=== PATIENT | female | born 1985 | race African-American/Black ===

== ENCOUNTER 2016-04-22 23:53 | Emergency (ER) | payer SELFPAY ==
[2016-04-23] MEDS ORDERED: Ibuprofen 800 MG TAB ONE (00:34)
--- NOTE | 2016-04-23 01:27 | ERRECORD ---
[facility] EMERGENCY RECORD HPI FOOT (00:12 BPIC) CHIEF COMPLAINT: Patient presents for evaluation of pain, to the right foot. HISTORIAN: History provided by patient, rt great toe pain and swelling that started after the end of her shift when she was standing throughout the day. pain worse with movement or palpation. sharp pain, no radiation. ROS (00:13 BPIC) CONSTITUTIONAL: Negative constitutional review of systems. EYES: Negative eye review of systems. ENT: Negative ears, nose, throat review of systems. CARDIOVASCULAR: Negative cardiovascular review of systems. RESPIRATORY: Negative respiratory review of systems. GI: Negative gastrointestinal review of systems. MUSCULOSKELETAL: see hpi. SKIN: Negative skin review of systems. PSYCHIATRIC: Negative psychiatric review of systems. PAST MEDICAL HISTORY MEDICAL HISTORY: Past medical history includes history of obesity, 325lbs, No past medical history. Notes: POSSIBLE TOXEMIA WITH LAST - EMERGENT C SECTION BECAUSE OF HER BP, No past medical history of cardiac disease, No past medical history of diabetes. VERIFIED 2-17. (00:14 MCRS) FEMALE SURGICAL HISTORY: Surgical history of section. Surgical history of section, Notes: X 1. VERIFIED 2-17. (00:14 MCRS) PSYCHIATRIC HISTORY: Notes: DENIES. No previous psychiatric history. VERIFIED 2-04-07. (00:14 MCRS) SOCIAL HISTORY: Patient denies alcohol use, Patient denies drug use, Patient has no smoking history, Social History includes VERIFIED TODAY'S VISIT, Patient has no smoking history, Patient denies alcohol use, Patient denies drug use. Patient has no smoking history, Patient denies alcohol use, Patient denies drug use. Social History includes WORKS AT [place], Social History includes VERIFIED TODAY'S VISIT, Patient has no smoking history, Patient denies alcohol use, Patient denies drug use. Patient has no smoking history, Patient denies alcohol use, Patient denies drug use. (00:14 MCRS) FAMILY HISTORY: No family history of coronary artery disease, Family history includes cerebral vascular accident, Family history includes diabetes, Family history includes hypertension. VERIFIED 2-17. (00:14 MCRS) NOTES: I have reviewed and agree with the PMH/PSxH/FamHx/SocHx obtained by the nurse. (00:13 BPIC) KNOWN ALLERGIES Penicillins CURRENT MEDICATIONS (00:05 MCRS) None &a-1R&a+25V*p+0X*j1513S*c202B*c15G*c2P*p-0X&a-25V&a+1R Name: Alyce Foote : 1985 F30 MedRec: [id number] AcctNum: [id number] Prepared: Asmira Apr 23, 2016 02:43 by Interface Page 1 of 3 pMD [facility] EMERGENCY RECORD VITAL SIGNS VITAL SIGNS: BP: 149/92 (Sitting), Pulse: 118, Resp: 20, Temp: 99.4 (Tympanic), Pain: 10 (Pressure), O2 sat: 96 on Room Air, Time: 04/23/2016 00:02. (00:02 MCRS) Temp: 99.4, Pain: 10, O2 sat: 96 on RA, Time: 04/23/2016 00:50. (00:50 MCRS) PHYSICAL EXAM (00:13 BPIC) CONSTITUTIONAL: Vital signs reviewed, Patient afebrile, Pulse normal, Blood pressure normal, Respiratory rate normal, Patient appears non toxic, Patient appears pain free, Patient alert and oriented to person, place and time. HEAD: Head exam included findings of head atraumatic, normocephalic. EYES: Eye exam included findings of eyelids normal to inspection, Extraocular muscles intact, Conjunctiva normal. ENT: Ear exam normal, Nose exam normal. NECK: Neck exam included findings of normal range of motion, Trachea midline. RESPIRATORY CHEST: Respiratory exam included findings of no respiratory distress, Chest exam included findings of chest movement symmetrical, Chest expansion equal. CARDIOVASCULAR: Cardiovascular exam included findings of heart rate regular rate and rhythm. LOWER EXTREMITY: right great toe tenderness to palpation. no appreciable swelling noted. NEURO: Neuro exam findings include patient oriented to person, place and time, Speech normal. PSYCHIATRIC: Psychiatric exam included findings of patient oriented to person place and time, Normal affect. RADIOLOGYINTERPRETATION (00:40 BPIC) LOWER EXTREMITIES: Toe films negative, on the right, no fracture, no dislocation. MEDICATION ADMINISTRATION SUMMARY Drug Name: ibuprofen, Dose Ordered: 800 mg, Route: Oral, Status: Given, Time: 00:36 04/23/2016, Detailed record available in Medication Service section. DOCTOR NOTES (00:40 BPIC) TEXT: I discussed the diagnosis with the patient prior to discharge. All questions were answered. There is no indication for admission currently and the patient will follow up with a primary care physician. Any pertinent labs or imaging were reviewed and dicussed with the patient. If any new or emergent symptoms occur, the patient will return to the emergency department. &a-1R&a+25V*p+0X*s7185U*c202B*c15G*c2P*p-0X&a-25V&a+1R Name: Alyce Foote : 1985 10 MedRec: [id number] AcctNum: [id number] Prepared: WedApr 23, 2016 02:43 by Interface Page 2 of 3 pMD [facility] EMERGENCY RECORD PROBLEM LIST No recorded problems DIAGNOSIS (00:41 BPIC) FINAL: PRIMARY: right great toe pain. PRESCRIPTION (00:41 BPIC) ibuprofen: TABLET : 800 mg : ORAL : Quantity: 800 Unit: mg Route: ORAL Schedule: every 8 hours PRN Dispense: 60 Unit: tab(s) May substitute. Refills: No Refills . NOTES: No Refills. DISPOSITION PATIENT: Disposition Type: Discharge, Disposition: *Discharge Home, Condition: Good. (00:40 BPIC) Disposition Transport: Car. (00:59 MCRS) Patient left the department. (00:59 MCRS) Sharma: BPIC=MD Melody, George MCRS=BRAEDEN Reynolds, Naseem &a-1R&a+25V*p+0X*[id number]*c202B*c15G*c2P*p-0X&a-25V&a+1R Name: Alyce Foote : 1985 F30 MedRec: [id number] AcctNum: [id number] Prepared: WedApr 23, 2016 02:43 by Interface Page 3 of 3 pMD MTDD
--- NOTE | 2016-04-23 01:29 | PICIS ---
[facility] EMERGENCY RECORD TRIAGE (WedApr 23, 2016 00:05 MCRS) TRIAGE NOTES: COMPLAINT OF RIGHT FOOT SWELLING SINCE 1300 TOADY... HAS BEEN STANDING MOST OF THE DAY - GREAT TOE HAS GREATEST SWELLING. (WedApr 23, 2016 00:05 MCRS) PATIENT: NAME: Alyce Foote, AGE: 30, GENDER: female, : Wed1985, TIME OF GREET: WedApr 22, 2016 23:54, PREFERRED LANGUAGE: [place], ETHNICITY: Not or , ECODE BILLING MAP: [facility], SSN: [id number], Zip Code: [address], KG WEIGHT: [phone], PHONE: , , , PERSON ID: [id number], PCP: MD Breewr Olayemi. (WedApr 23, 2016 00:05 MCRS) COMPLAINT: RIGHT FOOT SWOLLEN. (WedApr 23, 2016 00:05 MCRS) ADMISSION: URGENCY: 4 Non Urgent, ADMISSION SOURCE: Home, TRANSPORT: CAR, BED: ED -03. (WedApr 23, 2016 00:05 MCRS) ASSESSMENT: Assessment: COMPLAINT OF RIGHT GREAT TOES SWELLING AND PAIN SINCE 1300 TODAY.., Symptoms began 1300 TODAY. (00:14 MCRS) PAIN: Patient complains of pain described as, nagging, throbbing, Location RIGHT GREAT TOE, Pain is constant, Aggravating factors:, Aggravating factors include WALKING, No relieving factors. (00:14 MCRS) IMMUNIZATIONS: Flu vaccine up to date, Tetanus immunization up to date, Pneumococcal vaccine not up to date. (00:14 MCRS) SIRS SCORING: Heart Rate 110-139 (2), Temp range 96.8-101.1 (0), respiratory rate 12-24 (0), Mental Status altered: no (0). (00:14 MCRS) PROVIDERS: TRIAGE NURSE: Naseem Reynolds RN. (WedApr 23, 2016 00:05 MCRS) VITAL SIGNS: BP 149/92, (Sitting), Pulse 118, Resp 20, Temp 99.4, (Tympanic), Pain 10, (Pressure), O2 Sat 96, on Room Air, Time 04/23/2016 00:02. (00:02 MCRS) PREVIOUS VISIT ALLERGIES: Penicillins. (WedApr 23, 2016 00:05 MCRS) Penicillins. (00:14 MCRS) KNOWN ALLERGIES Penicillins CURRENT MEDICATIONS (00:05 MCRS) None VITAL SIGNS VITAL SIGNS: BP: 149/92 (Sitting), Pulse: 118, Resp: 20, Temp: 99.4 (Tympanic), Pain: 10 (Pressure), O2 sat: 96 on Room Air, Time: 04/23/2016 00:02. (00:02 MCRS) Temp: 99.4, Pain: 10, O2 sat: 96 on RA, Time: 04/23/2016 00:50. (00:50 MCRS) NURSING ASSESSMENT: EXTREMITY LOWER (00:14 MCRS) CONSTITUTIONAL: Patient arrives ambulatory, Gait steady, History &a-1R&a+25V*p+0X*r6989Y*c202B*c15G*c2P*p-0X&a-25V&a+1R Name: Alyce Foote : 1985 F30 MedRec: [id number] AcctNum: [id number] Prepared: WedApr 23, 2016 02:43 by Interface Page 1 of 5 pMD [facility] EMERGENCY RECORD obtained from patient, Patient appears, obese, uncomfortable, Patient cooperative, Patient alert, Oriented to person, place and time, Skin warm, Skin dry, Skin normal in color, Mucous membranes pink, Mucous membranes moist, Patient is well-groomed, Patient complains of PAINA ND SWELLING RIGHT GREAT TOE. PAIN: throbbing pain, to the first toe on the right foot, Onset of pain 1300 TODAY, constant, on a scale 0-10 patient rates pain as 10, Pain exacerbated by, WALKING-STANDING. NONVERBAL PAIN: Non Verbal pain assessment findings include: Non-verbal expressions of pain at rest (1), Facial grimaces present with movement (1), Result: 1. RIGHT LOWER EXTREMITY: Right lower extremity assessment findings include capillary refill less than 2 seconds, Skin color normal, Skin temperature warm, Distal sensation intact, Muscle tone normal, muscle strength 5, dorsalis pedis pulse is +3, Inspection findings include swelling, to RIGHT GREAT TOE, Notes: RIGHT GREAT TOE SWLOOEN AND PINKISH RED COLOR. SAFETY: Side rails up, Cart/Stretcher in lowest position, Family at bedside, Call light within reach, Hospital ID band on. NURSING PROCEDURE: BEDSIDE RADIOLOGY (00:22 MCRS) PATIENT IDENTIFIER: Patient actively involved in identification process, Patient's identity verified by hospital ID bracelet. BEDSIDE RADIOLOGY: Bedside radiology performed by FINANCIAL ANALYST ACCOUNTANT, Portable x-ray performed, of the right foot. SAFETY: Side rails up, Cart/Stretcher in lowest position, Family at bedside, Call light within reach, Hospital ID band on. NURSING PROCEDURE: DISCHARGE NOTE (00:50 MCRS) DISCHARGE: Patient discharged to home, ambulating without assistance, family driving, accompanied by //partner, Summary of Care printed/ provided, Patient requested and was provided an electronic copy of Discharge Instructions, Transition record given to patient, Discharge instructions given to patient, Simple or moderate discharge teaching performed, DISCHARGE INSTRUCTIONS, Prescriptions given and instructions on side effects given, Name of prescription(s) given: SEE LIST, Medication reconciliation form given, and reviewed with SEE LIST, Above person(s) verbalized understanding of discharge instructions and follow-up care, Patient treated and evaluated by physician. BELONGINGS: Valuables remain with patient. VITAL SIGNS: Temp: 99.4, Pain: 10, O2 sat: 96, on: RA. ORDER DETAILS Order Name: XR Toe(s) Rt Min 2 View, Status: Active, Time: 00:12 04/23/2016, User: [facility], - Ordered for: MD Oliver Bryan, - Entered by: MD Oliver Bryan - [facility] Apr 23, 2016 00:12, &a-1R&a+25V*p+0X*x5766A*c202B*c15G*c2P*p-0X&a-25V&a+1R Name: Alyce Foote : 1985 F30 MedRec: [id number] AcctNum: [id number] Prepared: [facility] Apr 23, 2016 02:43 by Interface Page 2 of 5 pMD [facility] EMERGENCY RECORD - Quantity: 1. MEDICATION ADMINISTRATION SUMMARY Drug Name: ibuprofen, Dose Ordered: 800 mg, Route: Oral, Status: Given, Time: 00:36 04/23/2016, Detailed record available in Medication Service section. MEDICATION SERVICE ibuprofen: Order: ibuprofen - Dose: 800 mg : Oral Ordered by: George Oliver MD Entered by: George Oliver MD [facility] Apr 23, 2016 00:33 , Acknowledged by: Naseem Reynolds RN [facility] Apr 23, 2016 00:33 Documented as given by: Naseem Reynolds RN [facility] Apr 23, 2016 00:36 Patient, Medication, Dose, Route and Time verified prior to administration. Amount given: 800MG, Site: Medication administered P.O., Patient appears Awake and alert- acceptable, Correct patient, time, route, dose and medication confirmed prior to administration, Patient advised of actions and side-effects prior to administration, Allergies confirmed and medications reviewed prior to administration, Patient in position of comfort, Side rails up, Cart in lowest position, Family at bedside. : Follow Up : Response assessment performed, No signs or symptoms of allergic reaction noted, No change in pain, No change in symptoms. (00:50 MCRS) HPI FOOT (00:12 BPIC) CHIEF COMPLAINT: Patient presents for evaluation of pain, to the right foot. HISTORIAN: History provided by patient, rt great toe pain and swelling that started after the end of her shift when she was standing throughout the day. pain worse with movement or palpation. sharp pain, no radiation. ROS (00:13 BPIC) CONSTITUTIONAL: Negative constitutional review of systems. EYES: Negative eye review of systems. ENT: Negative ears, nose, throat review of systems. CARDIOVASCULAR: Negative cardiovascular review of systems. RESPIRATORY: Negative respiratory review of systems. GI: Negative gastrointestinal review of systems. MUSCULOSKELETAL: see hpi. SKIN: Negative skin review of systems. PSYCHIATRIC: Negative psychiatric review of systems. PAST MEDICAL HISTORY MEDICAL HISTORY: Past medical history includes history of obesity, 325lbs, No past medical history. Notes: POSSIBLE TOXEMIA WITH LAST - EMERGENT C SECTION BECAUSE OF HER BP, No past medical history of cardiac disease, No past medical history of &a-1R&a+25V*p+0X*w7563S*c202B*c15G*c2P*p-0X&a-25V&a+1R Name: Alyce Foote : 1985 F30 MedRec: [id number] AcctNum: [id number] Prepared: Samira Apr 23, 2016 02:43 by Interface Page 3 of 5 pMD [facility] EMERGENCY RECORD diabetes. VERIFIED 04-22-16. (00:14 MCRS) FEMALE SURGICAL HISTORY: Surgical history of section. Surgical history of section, Notes: X 1. VERIFIED 04-22-16. (00:14 MCRS) PSYCHIATRIC HISTORY: Notes: DENIES. No previous psychiatric history. VERIFIED 04-22-16. (00:14 MCRS) SOCIAL HISTORY: Patient denies alcohol use, Patient denies drug use, Patient has no smoking history, Social History includes VERIFIED TODAY'S VISIT, Patient has no smoking history, Patient denies alcohol use, Patient denies drug use. Patient has no smoking history, Patient denies alcohol use, Patient denies drug use. Social History includes WORKS AT [place], Social History includes VERIFIED TODAY'S VISIT, Patient has no smoking history, Patient denies alcohol use, Patient denies drug use. Patient has no smoking history, Patient denies alcohol use, Patient denies drug use. (00:14 MCRS) FAMILY HISTORY: No family history of coronary artery disease, Family history includes cerebral vascular accident, Family history includes diabetes, Family history includes hypertension. VERIFIED 04-22-16. (00:14 MCRS) NOTES: I have reviewed and agree with the PMH/PSxH/FamHx/SocHx obtained by the nurse. (00:13 BPIC) PHYSICAL EXAM (00:13 BPIC) CONSTITUTIONAL: Vital signs reviewed, Patient afebrile, Pulse normal, Blood pressure normal, Respiratory rate normal, Patient appears non toxic, Patient appears pain free, Patient alert and oriented to person, place and time. HEAD: Head exam included findings of head atraumatic, normocephalic. EYES: Eye exam included findings of eyelids normal to inspection, Extraocular muscles intact, Conjunctiva normal. ENT: Ear exam normal, Nose exam normal. NECK: Neck exam included findings of normal range of motion, Trachea midline. RESPIRATORY CHEST: Respiratory exam included findings of no respiratory distress, Chest exam included findings of chest movement symmetrical, Chest expansion equal. CARDIOVASCULAR: Cardiovascular exam included findings of heart rate regular rate and rhythm. LOWER EXTREMITY: right great toe tenderness to palpation. no appreciable swelling noted. NEURO: Neuro exam findings include patient oriented to person, place and time, Speech normal. PSYCHIATRIC: Psychiatric exam included findings of patient oriented to person place and time, Normal affect. EVENTS TRANSFER: Triage to Emergency Main ED -03. (WedApr 23, 2016 00:05 MCRS) Removed from Emergency Main ED -03. (00:59 MCRS) &a-1R&a+25V*p+0X*e0767S*c202B*c15G*c2P*p-0X&a-25V&a+1R Name: Alyce Foote : 1985 F30 MedRec: [id number] AcctNum: [id number] Prepared: WedApr 23, 2016 02:43 by Interface Page 4 of 5 pMD [facility] EMERGENCY RECORD RADIOLOGYINTERPRETATION (00:40 BPIC) LOWER EXTREMITIES: Toe films negative, on the right, no fracture, no dislocation. DOCTOR NOTES (00:40 BPIC) TEXT: I discussed the diagnosis with the patient prior to discharge. All questions were answered. There is no indication for admission currently and the patient will follow up with a primary care physician. Any pertinent labs or imaging were reviewed and dicussed with the patient. If any new or emergent symptoms occur, the patient will return to the emergency department. PROBLEM LIST No recorded problems DIAGNOSIS (00:41 BPIC) FINAL: PRIMARY: right great toe pain. DISPOSITION PATIENT: Disposition Type: Discharge, Disposition: *Discharge Home, Condition: Good. (00:40 BPIC) Disposition Transport: Car. (00:59 MCRS) Patient left the department. (00:59 MCRS) INSTRUCTION (00:41 BPIC) DISCHARGE: TOE SPRAIN, TOE CONTUSION. FOLLOWUP: [facility], [facility], [facility], [address] [place] [address], . SPECIAL: Thank you for choosing [facility] for your care today! Please follow up with your doctor in the next 2-3 days. Return to the emergency department with any emergent or worsening concerns. God Bless you!. PRESCRIPTION (00:41 BPIC) ibuprofen: TABLET : 800 mg : ORAL : Quantity: 800 Unit: mg Route: ORAL Schedule: every 8 hours PRN Dispense: 60 Unit: tab(s) May substitute. Refills: No Refills . NOTES: No Refills. IMAGING (00:56 MCRS) *SUPPLY CHARGE SHEET: Image captured from scanner. WORK/SCHOOL RELEASE: Image captured from scanner. *DISCHARGE INSTRUCTIONS RECEIPT: Image captured from scanner. ADMIN (02:40 [facility]) DIGITAL SIGNATURE: MD Oliver Bryan. Sharma: BPIC=MD Oliver Bryan MCRS=BRAEDEN Reynolds, Naseem &a-1R&a+25V*p+0X*s9236L*c202B*c15G*c2P*p-0X&a-25V&a+1R Name: Alyce Foote : 1985 F30 MedRec: [id number] AcctNum: [id number] Prepared: Samira Apr 23, 2016 02:43 by Interface Page 5 of 5 pMD MTDD
--- NOTE | 2016-04-23 08:18 | RAD ---
THREE VIEWS OF THE RIGHT GREAT TOE: Date: 04-23-16 FINDINGS: A true lateral view of the right great toe is not provided for further evaluation. However, the AP and slightly oblique views of the right great toe demonstrate no fracture or obvious dislocation. N o other osseous abnormality. IMPRESSION: Lateral view is not provided for adequate evaluation but provided images of the right great toe demo nstrate no definite acute osseous abnormality. POS: SHANIKA
== END 2016-04-23 00:50 | disposition home or self-care (01) ==
LOC: MADERS 23:53
DX: M79.674 Pain in right toe(s) (principal)
CPT/HCPCS: 99283

== ENCOUNTER 2019-04-14 15:10 | Emergency (ER) | payer SELFPAY ==
--- NOTE | 2019-04-14 16:08 | RAD ---
Lumbar spine 2 views HISTORY: Back injury. FINDINGS: There are 5 lumbar type vertebrae. Pedicles are intact. Vertebral body heights and alignmen t are maintained. No displaced fractures evident. Mild osteophytosis of the vertebral bodies and facets. There are also mild degenerative changes of the hips. IMPRESSION: No acute osseous abnormalities are demonstrated.
[2019-04-14 16:33] LABS: Bilirubin Negative (Negative); Blood, Urine Negative (Negative); Glucose, Urine (Dipstick) Negative (Negative); Leukocyte Negative (Negative); Nitrite Negative (Negative); Protein, Urine (Dipstick) Trace mg/dL (Neg-Trace)
[2019-04-14 16:34] LABS: Clarity Hazy (Clear); Pregnancy Test - Urine (BHCG) Negative (Negative); Pregu Control Background? CLEAR/WHITE (CLR/WHITE); Pregu Control Bar Appear? YES (CONTROL BAR); Specific Gravity 1.025 (1.002-1.036)
[2019-04-14 16:35] LABS: ALT (SGPT) 10 U/L (8-55); AST (SGOT) 13 U/L (5-34); Albumin 3.7 g/dL (3.5-5.0); Alkaline Phosphatase 67 U/L (40-110); Anion Gap 12 mmol/L (10-20); BUN (Urea Nitrogen) 9 mg/dL (7.0-18.7); Bilirubin, Total 0.2 mg/dL (0.2-1.2); Calc. Creatinine Clearance 0 mL/min (70-130); Calcium 8.9 mg/dL (7.8-10.44); Carbon Dioxide 26 mmol/L (22-29); Chloride 105 mmol/L (98-107); Estimated GFR-MDRD Greater than 90; Globulin 4.6 g/dL (2.4-3.5); Glucose 91 mg/dL (70-105); Potassium 4.4 mmol/L (3.5-5.1); Protein, Total 8.3 g/dL (6.0-8.3); Sodium 139 mmol/L (136-145)
[2019-04-14 16:39] LABS: #Lymphocytes 1.9 thou/uL (1.20-3.40); #Monocytes 0.6 thou/uL (0.11-0.59); #Neutrophils 6.2 thou/uL (1.40-6.50); %Basophils 0.5 % (0.0-1.0); %Eosinophils 0.5 % (0.0-10.0); %Lymphocytes 21.7 % (21.0-51.0); %Monocytes 6.7 % (0.0-10.0); %Neutrophils 70.6 % (42.0-75.0); Anisocytosis SLIGHT = 6-15 cells (100X) (0-5/hpf); Hemoglobin 10.1 g/dL (12.0-16.0); Hypochromia SLIGHT = 6-15 cells (100X) (0-5/hpf); MDiff Complete? YES; Mean Corpuscular HGB CONC 27.6 g/dL (32.0-36.0); Mean Corpuscular Hemoglobin 19.2 pg (27.0-31.0); Mean Corpuscular Volume 69.8 fL (78.0-98.0); Mean Platelet Volume 6.4 fL (7.4-10.4); Microcytosis SLIGHT = 6-15 cells (100X) (0-5/hpf); Platelet Count 458 thou/uL (130-400); RBC Distribution Width 17.7 % (11.5-14.5); Red Blood Cell (RBC) Count 5.25 mill/uL (4.20-5.40); White Blood Cell (WBC) Count 8.8 thou/uL (4.8-10.8)
== END 2019-04-14 17:02 | disposition home or self-care (01) ==
LOC: MADERS 15:10
DX: S39.012A Strain of muscle, fascia and tendon of lower back, initial encounter (principal); D50.9 Iron deficiency anemia, unspecified; E66.9 Obesity, unspecified; V43.52XA Car driver injured in collision with other type car in traffic accident, initial encounter
CPT/HCPCS: 36415; 72100; 80053; 81003; 81025; 85025

== ENCOUNTER 2022-12-28 07:29 | Emergency (ER) | payer SELFPAY | END 2022-12-28 07:55 | disposition home or self-care (01) | LOC: MADERS 07:29 | DX: J11.1 Influenza due to unidentified influenza virus with other respiratory manifestations (principal); Z20.822 Contact with and (suspected) exposure to COVID-19; E66.9 Obesity, unspecified | CPT/HCPCS: 87635; 87804; 99283 ==